=== PATIENT | male | born 1970 | race Caucasian/White ===

== ENCOUNTER 2017-03-11 11:25 | Emergency (ER) | payer SELFPAY ==
[~2017-03-11] VITALS: Ht 172.7 cm; Wt 91.0 kg
[~2017-03-11 11:25] MED LIST: AMOXICILLIN500 MG OR; NO HOME MEDS; ROBITUSSIN AC OR
[2017-03-11] MEDS ORDERED: OMEPRAZOLE10 MG PO (11:56)
[2017-03-11] MEDS ORDERED: LISINOPRIL10 MG PO (11:57)
[2017-03-11] MEDS ORDERED: HYDROCHLOROT25 MG PO (11:58)
[2017-03-11 12:04] LABS: HEMATOCRIT 49.9 % (39.0-50.0); HEMOGLOBIN 17.2 g/dl (14.0-18.0); IMMATURE GRANULOCYTES 0.4 % (0.0-1.0); MEAN CELL VOLUME 91.7 fL CALC (80.0-100.0); MEAN CORPUSCULAR HGB 31.6 pG CALC (26.0-32.0); MEAN CORPUSCULAR HGB CONC 34.5 g/L CALC (32.0-36.0); NEUT# 11.29 thou/uL (1.82-7.42); RED BLOOD COUNT 5.44 mill/uL (4.70-6.10); RED CELL DISTRI WIDTH 12.7 % (11.5-15.5)
[2017-03-11 12:22] LABS: ALBUMIN 4.5 g/dL (3.2-5.0); ALKALINE PHOSPHATASE 73 u/l (38-126); ANION GAP 16 (6-22 (CALC)); BILIRUBIN, TOTAL 1.1 mg/dL (0.0-1.4); BUN 32 mg/dL (9-20); BUN/CREATININE RATIO 24 (12-20 (CALC)); CALCIUM 10.1 mg/dL (8.4-10.2); CARBON DIOXIDE 25 mmol/l (22-30); CHLORIDE 102 mmol/l (95-108); CREATININE 1.3 mg/dL (0.7-1.3); GFR 59 ML/MIN (>=60 (CALC)); GFR FOR AFR.AMER. > 60 ML/MIN (>=60 (CALC)); GLUCOSE 114 mg/dL (75-110); POTASSIUM 3.6 mmol/l (3.5-5.1); SGOT/AST 40 u/l (17-59); SGPT/ALT 46 u/l (21-72); SODIUM 139 mmol/l (137-146); TOTAL PROTEIN 7.4 g/dL (6.3-8.2)
[2017-03-11 12:40] LABS: MYOGLOBIN 371 ng/mL (0 - 121)
[2017-03-11 13:02] LABS: INTERNATIONAL NORMALIZED RATIO 0.9 RATIO (0.7-1.3)
[2017-03-11 14:15] VITALS: BP 144/88
[2017-03-11] MEDS ORDERED: AUGMENTIN875TAB PO (14:36)
== END 2017-03-11 14:15 | disposition left against medical advice (07) | DRG 313 ==
LOC: ED 11:25
PROVIDERS: Emergency Medicine
DX: R07.9 Chest pain, unspecified (principal); I10 Essential (primary) hypertension; Z91.19 Patient's noncompliance with other medical treatment and regimen; R00.0 Tachycardia, unspecified; D72.829 Elevated white blood cell count, unspecified; T67.5XXA Heat exhaustion, unspecified, initial encounter; X30.XXXA Exposure to excessive natural heat, initial encounter; Y93.89 Activity, other specified; Y92.89 Other specified places as the place of occurrence of the external cause; F17.210 Nicotine dependence, cigarettes, uncomplicated

== ENCOUNTER 2018-02-05 20:48 | Emergency (ER) | payer SELFPAY ==
[~2018-02-05] VITALS: Ht 172.7 cm; Wt 95.4 kg
[~2018-02-05 20:48] MED LIST changes: +AUGMENTIN875TAB PO; +HYDROCHLOROT25 MG PO; +LISINOPRIL10 MG PO; +OMEPRAZOLE10 MG PO
[2018-02-05 22:16] VITALS: BP 142/92
== END 2018-02-05 22:19 | disposition home or self-care (01) | DRG 605 ==
LOC: ED 20:48
PROC: 0HQGXZZ Repair Left Hand Skin, External Approach (ICD-10-PCS; principal; 2018-02-05)
DX: S61.211A Laceration without foreign body of left index finger without damage to nail, initial encounter (principal); S61.213A Laceration without foreign body of left middle finger without damage to nail, initial encounter; I10 Essential (primary) hypertension; F17.210 Nicotine dependence, cigarettes, uncomplicated; W23.0XXA Caught, crushed, jammed, or pinched between moving objects, initial encounter; Y92.009 Unspecified place in unspecified non-institutional (private) residence as the place of occurrence of the external cause

== ENCOUNTER 2018-02-10 11:00 | Emergency (ER) | payer SELFPAY ==
[~2018-02-10] VITALS: Ht 172.7 cm; Wt 100.0 kg
[2018-02-10] MEDS ORDERED: LISINOP/HCTZ1 TAB PO (11:46)
[2018-02-10] MEDS ORDERED: OMEPRAZOLE10 MG PO (11:49)
[2018-02-10] MEDS ORDERED: ULTRAM50 M1 PO (12:05)
[2018-02-10 12:13] VITALS: BP 138/88
== END 2018-02-10 12:13 | disposition home or self-care (01) | DRG 563 ==
LOC: ED 11:00
DX: S63.91XA Sprain of unspecified part of right wrist and hand, initial encounter (principal); I11.9 Hypertensive heart disease without heart failure; F17.210 Nicotine dependence, cigarettes, uncomplicated; W20.8XXA Other cause of strike by thrown, projected or falling object, initial encounter; Y93.89 Activity, other specified; Y92.71 Barn as the place of occurrence of the external cause

== ENCOUNTER 2018-05-07 22:37 | Emergency (ER) | payer SELFPAY ==
[~2018-05-07] VITALS: Ht 172.7 cm; Wt 95.0 kg
[~2018-05-07 22:37] MED LIST changes: +LISINOP/HCTZ1 TAB PO; +ULTRAM50 M1 PO
[2018-05-07] MEDS ORDERED: METOPROL TAR25 MG PO (22:46)
[2018-05-07] MEDS ORDERED: KEFLEX500 M1 PO (23:14)
[2018-05-07 23:25] VITALS: BP 148/93
== END 2018-05-07 23:27 | disposition home or self-care (01) | DRG 156 ==
LOC: ED 22:37
PROC: 0HQ3XZZ Repair Left Ear Skin, External Approach (ICD-10-PCS; principal; 2018-05-07)
DX: S01.312A Laceration without foreign body of left ear, initial encounter (principal); I10 Essential (primary) hypertension; F17.210 Nicotine dependence, cigarettes, uncomplicated; W22.8XXA Striking against or struck by other objects, initial encounter; Y93.89 Activity, other specified; Y92.009 Unspecified place in unspecified non-institutional (private) residence as the place of occurrence of the external cause

== ENCOUNTER 2019-10-26 | Emergency (ER) | payer SELFPAY ==
[~2019-10-26] MED LIST changes: +KEFLEX500 M1 PO; +METOPROL TAR25 MG PO
[2019-10-26 21:40] LABS: URINE BILIRUBIN - DIPSTICK NEGATIVE (NEGATIVE); URINE BLOOD DIPSTICK LARGE (NEGATIVE); URINE COLOR YELLOW; URINE GLUCOSE - DIPSTICK NEGATIVE (NEGATIVE); URINE KETONE NEGATIVE (NEGATIVE); URINE PROTEIN - DIPSTICK 100 mg/dL (NEG-TRACE); URINE SPECIFIC GRAVITY 1.025; URINE UROBILINOGEN - DIPSTICK 0.2 E.U./dL (0.2)
[2019-10-26 21:45] LABS: URINE LEUK ESTERASE MODERATE (NEGATIVE); URINE NITRITE - DIPSTICK POSITIVE (Negative)
[2019-10-26 21:46] LABS: URINE BACTERIA FEW hpf; URINE WBC 50-100 WBC/hpf (0-5)
[2019-10-26] MEDS ORDERED: CIPROFLOXACN500 MG PO (22:32)
[2019-10-26] MEDS ORDERED: PYRIDIUM200 MG PO (22:32)
== END 2019-10-26 22:43 | disposition home or self-care (01) | DRG 690 ==
PROVIDERS: Emergency Medicine
DX: N39.0 Urinary tract infection, site not specified (principal); I10 Essential (primary) hypertension; F17.210 Nicotine dependence, cigarettes, uncomplicated

== ENCOUNTER 2020-05-23 10:48 | Inpatient (IN) | payer SELFPAY ==
[~2020-05-23] VITALS: Ht 172.7 cm; Wt 92.2 kg
[~2020-05-23 10:48] MED LIST changes: +CIPROFLOXACN500 MG PO; +PYRIDIUM200 MG PO
--- NOTE | 2020-05-23 10:48 | NUR ---
PT TO ROOM VIA EMS
--- NOTE | 2020-05-23 11:00 | NUR ---
PT NOTIFIED OF NEEDED URINE. URINAL WITHIN REACH ALONG WITH CALL LIGHT
[2020-05-23 11:31] LABS: HEMATOCRIT 50.8 % (39.0-50.0); HEMOGLOBIN 16.9 g/dl (14.0-18.0); IMMATURE GRANULOCYTES 0.5 % (0.0-5.0); MEAN CELL VOLUME 90.9 fL CALC (80.0-100.0); MEAN CORPUSCULAR HGB 30.2 pG CALC (26.0-32.0); MEAN CORPUSCULAR HGB CONC 33.3 g/dL CAL (32.0-36.0); NEUT# 13.75 thou/uL (1.82-7.42); RED BLOOD COUNT 5.59 mill/uL (4.70-6.10); RED CELL DISTRI WIDTH 13.1 % (11.5-15.5)
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
--- NOTE | 2020-05-23 12:30 | NUR ---
PT DENIES ANY NEEDS. RESTING ON STRETCHER. PT TAKEN OFF OF [facility] 30 MINS AGO. CALL LIGHT WITHIN REACH
[2020-05-23 12:49] LABS: ALBUMIN 5.2 g/dL (3.2-5.0); POTASSIUM 3.5 mmol/l (3.5-5.1)
[2020-05-23 12:50] LABS: BILIRUBIN, TOTAL 2.2 mg/dL (0.0-1.4); CREATININE 3.4 mg/dL (0.7-1.3); TOTAL PROTEIN 9.1 g/dL (6.3-8.2)
--- NOTE | 2020-05-23 13:26 | NUR ---
PT RESTING WITH EYES CLOSED. CALL LIGHT WITHIN REACH
--- NOTE | 2020-05-23 14:30 | NUR ---
PT RESTING ON STRETCHER STATES HAVING GENERALIZED BODY ACHES. PT ASKED FOR ICE CHIPS, REQUEST GRANTED. DENIES ANY FURTHER NEEDS
--- NOTE | 2020-05-23 15:30 | NUR ---
FLUIDS CONTINUE TO INFUSE AT 200 ML/HR. DENIES ANY NEEDS. VITALS WITHIN NORMAL LIMITS WITH HR AT 100-105
--- NOTE | 2020-05-23 16:34 | NUR ---
PT NOTIFIED OF PENDING ADMISSION. DENIES ANY QUESTIONS. PLAN OF CARE AND WAIT MENTIONED. CALL LIGHT WITHIN REACH
--- NOTE | 2020-05-23 17:20 | NUR ---
GAVE REPORT TO YAMILA
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
[2020-05-23 17:39] VITALS: BP 103/62
--- NOTE | 2020-05-23 18:00 | NUR ---
PT REPORTS NAUSEA AND REQUESTS PRN ANIEMETIC, PT MEDICATED WITH PRN ZOFRAN 4MG IVP AT THIS TIME;WILL CONTINUE TO MONITOR FOR EFFECTIVENESS
--- NOTE | 2020-05-23 19:42 | NUR ---
PT ASSISTED TO RESTROOM AND BACK TO BED. PT REPORTED LOOSE STOOLS. HE IS REQUESTING A SHOWER. PURCHASING INTERNSHIP INFORMED OF NEED FOR ASSISTANCE FOR SHOWER AND IV SITE COVERING.
[2020-05-23 20:00] VITALS: BP 110/64
--- NOTE | 2020-05-23 20:44 | NUR ---
PT OUT OF THE SHOWER. IVF REPLENISHED AND RUNNING TO SITE IN RAC/APPEARS HEALTHY. PT ASKING FOR WOUND TO RLE TO BE COVERED W/SMALL BANDAGE/PROVIDED.
[2020-05-24 00:17] VITALS: BP 118/73
--- NOTE | 2020-05-24 00:30 | NUR ---
SOFTWARE ENGINEERING SUPERVISOR IN W/PT AT THIS TIME. PT DENIES ANY NEEDS, REPORTS HAVING 2X LOOSE WATERY STOOL. REPORTS HAVING URINATED 1X +-200CC, REPORTS THAT HE DID NOT SAVE IT AND FLUSHED TOILET. PT HAS BEEN ADVISED THAT WE NEED TO COLLECT AND MEASURE ALL URINE. PT VERBALIZED UNDERSTANDING. WILL CONTINUE TO MONITOR.
--- NOTE | 2020-05-24 02:50 | NUR ---
PT SLEEPING, URINE COLLECTED FROM CLEAN URINAL @260CC OF PALE CLEAR URINE. NO S/O DISTRESS NOTED. URINE SENT TO LAB. CALL LIGHT AT SIDE.
[2020-05-24 04:00] VITALS: BP 118/72
--- NOTE | 2020-05-24 04:06 | NUR ---
AIDE IN W/PT OBTAINING V/S. PT AWAKE AND ALERT I ENTERED THE ROOM. DENIES ANY NEEDS AT THIS TIME. CALL LIGHT AT SIDE AND I ENCOURAGED PT TO CALL ANY NEEDS ARISE.
[2020-05-24 05:50] LABS: URINE BILIRUBIN - DIPSTICK NEGATIVE (NEGATIVE); URINE BLOOD DIPSTICK NEGATIVE (NEGATIVE); URINE COLOR YELLOW; URINE GLUCOSE - DIPSTICK NEGATIVE (NEGATIVE); URINE KETONE NEGATIVE (NEGATIVE); URINE LEUK ESTERASE NEGATIVE (NEGATIVE); URINE NITRITE - DIPSTICK NEGATIVE (Negative); URINE PH 5.5 (4.5-8.0); URINE PROTEIN - DIPSTICK NEGATIVE (NEG-TRACE); URINE SPECIFIC GRAVITY 1.015; URINE UROBILINOGEN - DIPSTICK 0.2 E.U./dL (0.2)
[2020-05-24 05:53] LABS: IMMATURE GRANULOCYTES 0.3 % (0.0-5.0); MEAN CELL VOLUME 92.9 fL CALC (80.0-100.0); MEAN CORPUSCULAR HGB 30.1 pG CALC (26.0-32.0); MEAN CORPUSCULAR HGB CONC 32.4 g/dL CAL (32.0-36.0); NEUT# 7.14 thou/uL (1.82-7.42); RED BLOOD COUNT 4.62 mill/uL (4.70-6.10); RED CELL DISTRI WIDTH 13.2 % (11.5-15.5)
[2020-05-24 06:01] LABS: ALKALINE PHOSPHATASE 64 u/l (38-126); ANION GAP 11 (6-22 (CALC)); BUN 31 mg/dL (9-20); BUN/CREATININE RATIO 25 (12-20 (CALC)); CARBON DIOXIDE 22 mmol/l (22-30); CHLORIDE 110 mmol/l (95-108); CPK 646 u/l (52-200); CREATININE 1.2 mg/dL (0.7-1.3); GFR > 60 ML/MIN (>=60 (CALC)); GFR FOR AFR.AMER. > 60 ML/MIN (>=60 (CALC)); POTASSIUM 3.9 mmol/l (3.5-5.1); SGOT/AST 35 u/l (17-59); SODIUM 139 mmol/l (137-146)
[2020-05-24 06:05] LABS: HEMATOCRIT 42.9 % (39.0-50.0); HEMOGLOBIN 13.9 g/dl (14.0-18.0)
[2020-05-24 06:07] LABS: ALBUMIN 3.7 g/dL (3.2-5.0); BILIRUBIN, TOTAL 1.2 mg/dL (0.0-1.4); TOTAL PROTEIN 6.3 g/dL (6.3-8.2)
--- NOTE | 2020-05-24 07:00 | NUR ---
SHIFT CHANGE REPORT, PT AWAKE ALERT AND ORIENTED, NO C/O DISCOMFORT, TELE MONITOR IN PLACE, CALL BARRAZA IN REACH.
--- NOTE | 2020-05-24 07:17 | NUR ---
PT note Patient is screened for rehab intervention and no needs are identified at this time
[2020-05-24 07:32] VITALS: BP 121/67
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
[2020-05-24] MEDS ORDERED: MUPIROCIN21 TOP (11:40)
[2020-05-24] MEDS ORDERED: BACTRIM1 TAB PO (11:40)
--- NOTE | 2020-05-24 13:08 | NUR ---
Discharge instructions given. Patient verbalizes understanding of same. Discharged in good condition via Ambulatory to Home with family. All belongings sent with pt.
== END 2020-05-24 12:55 | disposition home or self-care (01) | DRG 683 ==
LOC: ED 10:48 → ED-I 15:07 → ED 15:36 → MS2 15:37
PROVIDERS: Family Medicine; Nurse Practitioner; ADMIT Internal Medicine; ATTEND Internal Medicine
DX: N17.9 Acute kidney failure, unspecified (principal); M62.82 Rhabdomyolysis; I10 Essential (primary) hypertension; S80.811A Abrasion, right lower leg, initial encounter; F17.210 Nicotine dependence, cigarettes, uncomplicated; V18.0XXA Pedal cycle driver injured in noncollision transport accident in nontraffic accident, initial encounter; Y93.55 Activity, bike riding; Z20.828 Contact with and (suspected) exposure to other viral communicable diseases

== ENCOUNTER 2020-06-02 17:29 | Emergency (ER) | payer SELFPAY ==
[~2020-06-02] VITALS: Ht 172.7 cm; Wt 105.0 kg
[~2020-06-02 17:29] MED LIST changes: +BACTRIM1 TAB PO; +MUPIROCIN21 TOP
[2020-06-02] MEDS ORDERED: LISINOP/HCTZ1 TAB PO (17:47)
[2020-06-02 18:04] VITALS: BP 155/96
[2020-06-02] MEDS ORDERED: CYCLOBENZAPRINE10 MG PO (18:41)
[2020-06-02] MEDS ORDERED: TRAMADOL HYDROC50 M1 PO (18:41)
== END 2020-06-02 18:57 | disposition home or self-care (01) | DRG 556 ==
LOC: ED 17:29
DX: M25.512 Pain in left shoulder (principal); F17.210 Nicotine dependence, cigarettes, uncomplicated; W01.0XXA Fall on same level from slipping, tripping and stumbling without subsequent striking against object, initial encounter; Y92.009 Unspecified place in unspecified non-institutional (private) residence as the place of occurrence of the external cause

== ENCOUNTER 2021-01-07 10:46 | Observation (INO) | payer OTHER ==
[~2021-01-07] VITALS: Ht 175.3 cm; Wt 101.9 kg
[~2021-01-07 10:46] MED LIST changes: +CYCLOBENZAPRINE10 MG PO; +TRAMADOL HYDROC50 M1 PO
--- NOTE | 2021-01-07 10:48 | NUR ---
PT AMBULATED TO ROOM WITH STEADY GAIT
[2021-01-07 11:40] LABS: HEMATOCRIT 43.7 % (39.0-50.0); HEMOGLOBIN 13.5 g/dl (14.0-18.0); IMMATURE GRANULOCYTES 0.3 % (0.0-5.0); MEAN CELL VOLUME 93.2 fL CALC (80.0-100.0); MEAN CORPUSCULAR HGB 28.8 pG CALC (26.0-32.0); MEAN CORPUSCULAR HGB CONC 30.9 g/dL CAL (32.0-36.0); NEUT# 4.53 thou/uL (1.82-7.42); RED BLOOD COUNT 4.69 mill/uL (4.70-6.10); RED CELL DISTRI WIDTH 13.2 % (11.5-15.5)
[2021-01-07 11:57] LABS: ALBUMIN 3.9 g/dL (3.2-5.0); ALKALINE PHOSPHATASE 66 u/l (38-126); ANION GAP 13 (6-22 (CALC)); BILIRUBIN, TOTAL 0.8 mg/dL (0.0-1.4); BUN 21 mg/dL (9-20); BUN/CREATININE RATIO 21 (12-20 (CALC)); CARBON DIOXIDE 26 mmol/l (22-30); CHLORIDE 103 mmol/l (95-108); GFR > 60 ML/MIN (>=60 (CALC)); GFR FOR AFR.AMER. > 60 ML/MIN (>=60 (CALC)); LIPASE 223 u/l (23-300); POTASSIUM 4.6 mmol/l (3.5-5.1); SGOT/AST 47 u/l (17-59); SODIUM 138 mmol/l (137-146); TOTAL PROTEIN 7.1 g/dL (6.3-8.2)
--- NOTE | 2021-01-07 12:15 | NUR ---
PT RESTING QUIETLY, NAD
[2021-01-07 12:24] LABS: ACT PARTIAL THROMBO TIME 25.4 SECONDS (20.0-32.5)
[2021-01-07 12:30] LABS: D-DIMER 0.99 mg/L (0.19-0.60)
--- NOTE | 2021-01-07 13:00 | NUR ---
PT AWARE OF WAIT AND POC, NAD, AWAITING RESULTS
--- NOTE | 2021-01-07 14:26 | NUR ---
AWAITING RESULTS AND ADMISSION
--- NOTE | 2021-01-07 15:52 | NUR ---
ATTEMPTED REPORT TO [facility], NO ANSWER
--- NOTE | 2021-01-07 16:34 | NUR ---
REPORT RECEIVED FROM GALINA HART
[2021-01-07 16:52] VITALS: BP 142/104
--- NOTE | 2021-01-07 16:52 | NUR ---
PT ARRIVED TO MED/SURG ROOM 262 IN STABLE CONDITION VIA WHEELCHAIR ACCOMPANIED BY GALINA HART;PT AMBULATED TO RESTROOM AND BEDSIDE WITH A STEADY GAIT;WT AND VS OBTAINED AT THIS TIME;PT A&O X3,ORIENTED TO ROOM AND CALL LIGHT SYSTEM;PT DENIES ANY CURRENT PAIN OR DISCOMFORTS,PAIN SCALE AND REPORTING EDUCATED;PT REPORTS BLE EDEMA X2 WEEKS AND SOB AT TIMES.WENT TO [facility] AND DX WITH CHF, REFUSED ADMIT DUE TO WORK X1 WEEK AGO;ASSESSMENT COMPLETED;RESPIRATIONS EVEN AND UNLABORED ON RA,CLEAR LUNG SOUNDS;ABDOMEN SOFT ON PALPATION AND ACTIVE IN ALL 4 QUADRANTS,LAST BM 01/06/21;WEAK PEDAL PULSES WITH +2 EDEMA BLE,ENCOURAGED ELEVATION;SKIN INTACT;TELE MONITORING IN PLACE;#20G TO RAC AND #20G TO RH FLUSHED AND PATENT,BOTH SITES APPEAR HEALTHY;ALLERGY BAND APPLIED LEFT ARM;PT DENIES ANY ADDITIONAL NEEDS AT THIS TIME;ENCOURAGED TO CALL FOR ASSISTANCE IF NEEDED;FALL PRECAUTIONS IN PLACE WITH BED IN THE LOWEST POSITION AND CALL LIGHT IN REACH;WILL CONTINUE TO MONITOR
[2021-01-07 17:30] VITALS: BP 160/103
--- NOTE | 2021-01-07 17:38 | NUR ---
NOTIFIED OF ELEVATED BP 160/103 HR 105. NEW ORDERS RECEIVED,
[2021-01-07 18:10] VITALS: BP 151/97
--- NOTE | 2021-01-07 18:10 | NUR ---
BP RE-CHECK 151/97 HR 95. LABETOLOL 10MG IV HELD AT THIS TIME.WILL CONTINUE TO MONITOR
[2021-01-07 19:00] VITALS: BP 149/99
[2021-01-07 20:03] LABS: URINE BILIRUBIN - DIPSTICK NEGATIVE (NEGATIVE); URINE BLOOD DIPSTICK NEGATIVE (NEGATIVE); URINE COLOR YELLOW; URINE GLUCOSE - DIPSTICK NEGATIVE (NEGATIVE); URINE KETONE NEGATIVE (NEGATIVE); URINE LEUK ESTERASE NEGATIVE (NEGATIVE); URINE PH 6.5 (4.5-8.0); URINE PROTEIN - DIPSTICK NEGATIVE (NEG-TRACE); URINE SPECIFIC GRAVITY 1.025; URINE UROBILINOGEN - DIPSTICK 0.2 E.U./dL (0.2)
--- NOTE | 2021-01-07 20:17 | NUR ---
PT ASSESSMENTS COMPLETED, SEE DOCUMENTATION. FLOOR ANIMAL GENETICIST ADVISED THAT PT NEEDS DAILY WEIGHTS TO MONITOR FOR FLUID RETENTION. PT DENIES PAIN. DENIES SOB. NO S/S OF DISTRESS NOTED. PT B/P NOTED TO BE HIGH AT 149/99. I ADVISED PT TO REST FOR THE NEXT 20 MINUTES AND WE WILL CHECK B/P AGAIN. POSSIBLE LABATELOL ADMINSTRATION DEPENDING ON RECHECK OF B/P. SAFETY PRECAUTIONS IN PLACE, WILL MONITOR
[2021-01-07 20:27] LABS: URINE NITRITE - DIPSTICK NEGATIVE (Negative)
[2021-01-07 21:04] VITALS: BP 124/91
[2021-01-08] VITALS: BP 140/95
--- NOTE | 2021-01-08 00:48 | NUR ---
PT RSTING COMFORTABLY, NO S/S OF DISTRESS NOTED. DENIES PAIN. BREATHING EVEN AND UNLABORED. NO COMPLAINTS VOICED. SAFETY PRECAUTIONS IN PLACE, BED IN LOWEST POSITION, CALL BARRAZA WITHIN REACH.
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
[2021-01-08 04:00] VITALS: BP 141/99
--- NOTE | 2021-01-08 04:19 | NUR ---
PT RESTING QUIRTLY IN BED AT THIS TIME. BREATHNGIS EVEN AND UNLABORED. NO COMPLAINTS VOICED, DENIES PAIN. TALLEY DRAINING TO GRAVITY, BROWNISH/RED URNE. NO CLOTS NOTED AT THIS TIME. SAFETY PRECAUTIONS IN PLACE. WILL MONITOR
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
[2021-01-08 05:27] LABS: HEMATOCRIT 47.4 % (39.0-50.0); HEMOGLOBIN 14.9 g/dl (14.0-18.0); MEAN CELL VOLUME 93.1 fL CALC (80.0-100.0); MEAN CORPUSCULAR HGB 29.3 pG CALC (26.0-32.0); MEAN CORPUSCULAR HGB CONC 31.4 g/dL CAL (32.0-36.0); RED BLOOD COUNT 5.09 mill/uL (4.70-6.10)
[2021-01-08 05:49] LABS: ANION GAP 12 (6-22 (CALC)); BUN 21 mg/dL (9-20); BUN/CREATININE RATIO 22 (12-20 (CALC)); CALCULATED LDLCHOLESTEROL 93 mg/dL (62-129 (CALC)); CARBON DIOXIDE 30 mmol/l (22-30); CHLORIDE 99 mmol/l (95-108); CHOLESTEROL HDL RATIO 4.1 (<4.4 (CALC)); CREATININE 0.9 mg/dL (0.7-1.3); GFR > 60 ML/MIN (>=60 (CALC)); GFR FOR AFR.AMER. > 60 ML/MIN (>=60 (CALC)); HDL CHOLESTEROL 36 mg/dL (>=40); MAGNESIUM 2.1 mg/dL (1.6-2.3); POTASSIUM 4.5 mmol/l (3.5-5.1); SODIUM 136 mmol/l (137-146); TOTAL CHOLESTEROL 147 mg/dl (0-199); TOTAL TRIGLYCERIDES 92 mg/dl (30-149); VLDL CHOLESTROL 18 mg/dl (5-56 (CALC))
[2021-01-08 07:31] VITALS: BP 146/97
--- NOTE | 2021-01-08 08:06 | NUR ---
SHIFT CHANGE REPORT, PT AWAKE ALERT AND ORIENTED SITTING UP ON SIDE OF BED, DENIES DISCOMFORT, TELE MONITOR IN PLACE, CALL BARRAZA IN REACH AND BED LOCKED IN LOWEST POSITION
[2021-01-08 10:46] VITALS: BP 129/79
--- NOTE | 2021-01-08 12:00 | NUR ---
ATE MEAL AND RESTING IN BED, ALL NEEDS MET/ADDRESSED.
--- NOTE | 2021-01-08 12:12 | NUR ---
Attempted to screen patient for physical therapy. Physical therapist tried to wake the patient but patient kept going back to sleep. As a result patient screening was not able to be done.
[2021-01-08 14:00] VITALS: BP 145/93
--- NOTE | 2021-01-08 16:00 | NUR ---
SLEEPING, BREATHING EVEN AND NON-LABORED, NO SIGN DISCOMFORT.
[2021-01-08 19:00] VITALS: BP 138/91
--- NOTE | 2021-01-08 20:00 | NUR ---
PHYSICAL ASSESMENT COMPLETE. PT CURRENTLY DENIES PAIN OR DISCOMFORT. SCHEDULED MEDICATIONS AND PRN MEDICATION ADMINISTERED, SEE E-MAR. PT DENIES ANY NEEDS AT THIS TIME. PLAN OF CARE REVIEWED, PT DENIES QUESTIONS, VERBALIZES UNDERSTANDING. ITEMS WITHIN REACH, BED LOCKED IN LOW POSITION W/ BEDRAILS UP X2. CALL BARRAZA WITHIN REACH, AGREES TO CALL PRN.
[2021-01-09] VITALS: BP 135/96
--- NOTE | 2021-01-09 | NUR ---
PT LAYING IN BED WITH EYES CLOSED, APPEARS TO BE SLEEPING, APPEARS COMFORTABLE AND IN NO DISTRESS. RESPIRATIONS REGULAR AND UNLABORED. ITEMS REMAIN WITHIN REACH, CALL BARRAZA REMAINS WITHIN REACH. BED REMAINS LOCKED AND IN LOW POSITION WITH BEDRAILS UP X2. WILL CONTINUE TO MONITOR.
[2021-01-09 04:00] VITALS: BP 140/94
--- NOTE | 2021-01-09 04:19 | NUR ---
PT RESTING IN BED, NO SIGNS OF DISTRESS NOTED, RESP EVEN AND UNLABORED. PT VOICES NO NEEDS OR COMPLAINTS AT THIS TIME. CALL LIGHT IN REACH, CONTINUE TO MONITOR.
[2021-01-09 05:47] LABS: HEMATOCRIT 47.2 % (39.0-50.0); HEMOGLOBIN 15.4 g/dl (14.0-18.0); MEAN CELL VOLUME 90.9 fL CALC (80.0-100.0); MEAN CORPUSCULAR HGB 29.7 pG CALC (26.0-32.0); MEAN CORPUSCULAR HGB CONC 32.6 g/dL CAL (32.0-36.0); RED BLOOD COUNT 5.19 mill/uL (4.70-6.10)
[2021-01-09 05:53] LABS: ANION GAP 12 (6-22 (CALC)); BUN 22 mg/dL (9-20); BUN/CREATININE RATIO 23 (12-20 (CALC)); CARBON DIOXIDE 28 mmol/l (22-30); CHLORIDE 99 mmol/l (95-108); GFR > 60 ML/MIN (>=60 (CALC)); GFR FOR AFR.AMER. > 60 ML/MIN (>=60 (CALC)); POTASSIUM 4.3 mmol/l (3.5-5.1); SODIUM 134 mmol/l (137-146)
[2021-01-09 07:44] VITALS: BP 143/101
--- NOTE | 2021-01-09 08:00 | NUR ---
PATIENT IS SITTING IN THE RECLIENR. ASSESMENT DONE. PATIENT IS ALERT AND ORIENT X3. PATIENT DENIES PAIN AT THIS TIME. TELE IN PLACE. PATIENT DENIES NEEDS. CALL LIGHT IN REACH.
[2021-01-09 10:53] VITALS: BP 125/86
--- NOTE | 2021-01-09 11:11 | NUR ---
Patient screened for Physical Therapy services, patient is independent in mobility and ambulation within the room. Patient does not PT services services at this time.
--- NOTE | 2021-01-09 11:39 | NUR ---
PATIENT IS RESTING IN BED ON HIS LEFT SIDE WITH NO DISTRESS NOTED. PATIENT DENIES NEEDS. CALL LIGHT IN REACH.
[2021-01-09 15:11] VITALS: BP 141/87
[2021-01-09] MEDS ORDERED: LASIX 20 MG TAB20 MG PO (15:22)
[2021-01-09] MEDS ORDERED: LOPRESSOR 550 MG/TAB PO (15:22)
[2021-01-09] MEDS ORDERED: ADLT ASA LOW81 MG PO (15:22)
--- NOTE | 2021-01-09 15:53 | NUR ---
Discharge instructions given. Patient verbalizes understanding of same. Discharged in stable condition via Wheelchair to Home with volunteer. All belongings sent with pt.
== END 2021-01-09 15:53 | disposition home or self-care (01) | DRG 293 ==
LOC: ED 10:46 → ED-I 15:09 → ED 15:20 → MS2 15:21
PROVIDERS: Internal Medicine; Nurse Practitioner; ADMIT Internal Medicine; ATTEND Internal Medicine
DX: I11.0 Hypertensive heart disease with heart failure (principal); I50.9 Heart failure, unspecified; R00.0 Tachycardia, unspecified; F17.210 Nicotine dependence, cigarettes, uncomplicated; Z20.822 Contact with and (suspected) exposure to COVID-19
CPT/HCPCS: G0378; Q9967

== ENCOUNTER 2021-08-22 21:56 | Emergency (ER) | payer SELFPAY ==
[~2021-08-22] VITALS: Ht 175.3 cm; Wt 100.0 kg
[~2021-08-22 21:56] MED LIST changes: +ADLT ASA LOW81 MG PO; +LASIX 20 MG TAB20 MG PO; +LOPRESSOR 550 MG/TAB PO
[2021-08-22 22:59] VITALS: BP 191/100
== END 2021-08-22 23:10 | disposition home or self-care (01) | DRG 563 ==
LOC: ED 21:56
DX: S63.502A Unspecified sprain of left wrist, initial encounter (principal); S60.222A Contusion of left hand, initial encounter; Y04.0XXA Assault by unarmed brawl or fight, initial encounter